=== PATIENT | male | born 1975 | race Caucasian/White ===

== ENCOUNTER → 2016-12-01 | Outpatient (CLI) | payer OTHER ==
--- NOTE | 2016-12-02 07:53 | MR ---
EXAMINATION TYPE: MR shoulder RT wo con DATE OF EXAM: 12/01/2016 9:06 PM COMPARISON: NONE HISTORY: right shoulder pain 6-8 weeks TECHNIQUE: Multiplanar, multisequence imaging of the right shoulder is performed without contrast. FINDINGS: Rotator Cuff: There is thickening of the rotator cuff tendon. Some artifact is present which could li luis sensitivity. No theron rotator cuff tear is evident. There is a distal acromial spur. Acromioclavicular Joint: Hypertrophic change at the acromioclavicular joint causes mass effect on the musculotendinous junction of supraspinatus Glenohumeral Joint: Intact Labrum: The labrum appears grossly intact given limitation of non-arthrogram study. Biceps Tendon: The long head of biceps is in normal location within bicipital groove. Bone marrow signal: No focal abnormal marrow signal is appreciated. Other: No additional significant abnormality is appreciated. IMPRESSION: Findings suggest biceps tendinosis. Correlate for impingement.
== END | disposition home or self-care (01) ==
LOC: RADMRIMAIN 19:40
PROVIDERS: ATTEND Family Medicine
DX: M25.511 Pain in right shoulder (principal)